=== PATIENT | male | born 1950 | race Caucasian/White ===

== ENCOUNTER 2024-12-04 12:47 | Outpatient (CLI) | payer OTHER, SELFPAY ==
--- NOTE | 2024-12-04 13:00 | MR_ITS ---
WS: [id number] MRI BRAIN WITHOUT CONTRAST HISTORY: G40.909 - Epilepsy, unspecified, not intractable, history of stroke. COMPARISON: None available. TECHNIQUE: Diffusion imaging, multiplanar T1, T2 and FLAIR imaging obtained. Normal diffusion imaging. Large remote infarct with encephalomalacia involving the RIGHT parietal occipital region. Ex vacuo dilatation of the adjacent RIGHT lateral ventricle. Bilateral lacunar infarcts in the escobar radiata. There are additional moderate small vessel ischemic changes bilaterally. Moderate bilateral hippocampal atrophy. The ventricles are mildly prominent on the basis of atrophy and adjacent infarct. No inferior displacement of cerebellar tonsils. The sella turcica and pituitary gland are unremarkable. Dural venous sinuses and [place] of [place] demonstrate no abnormality on this unenhanced studies. Paranasal sinuses: Clear. Mastoid air cells: Small amount of fluid in the LEFT mastoid air cells. Calvarium and scalp: Intact. MR/MR head wo con* [id number] IMPRESSION: 1. Remote RIGHT parieto-occipital infarct with encephalomalacia and ex vacuo d ilatation of the adjacent RIGHT lateral ventricle. 2. Additional moderate small vessel ischemic disease and small bilateral centr um semiovale lacunar infarcts. 3. Moderate hippocampal atrophy.
--- NOTE | 2024-12-04 13:08 | XR_ITS ---
WS: [id number] CHEST, 1 view. HISTORY: MRI CLEARANCE, unknown device within the chest according to the patient. COMPARISON: None available. Cardiac loop recorder projecting over the mediastinum at the level of the aortic arch. Lungs are clear and well expanded. No pleural effusion or pneumothorax. Cardiac size: Normal. Mediastinum/Aorta: Normal mediastinum. No osseous abnormality seen. XR/XR chest 1V [id number] IMPRESSION: Cardiac loop recorder projecting over the mediastinum.
== END 2024-12-04 12:48 | disposition home or self-care (01) ==
PROVIDERS: PCP Nurse Practitioner Family; Visit Provider Psychiatry & Neurology Neurology
DX: G40.909 Epilepsy, unspecified, not intractable, without status epilepticus (principal); I63.81 Other cerebral infarction due to occlusion or stenosis of small artery; Z96.89 Presence of other specified functional implants; R93.0 Abnormal findings on diagnostic imaging of skull and head, not elsewhere classified; G31.89 Other specified degenerative diseases of nervous system; H74.8X2 Other specified disorders of left middle ear and mastoid
CPT/HCPCS: 70551; 71045